=== PATIENT | male | born 1940 | race Caucasian/White ===

== ENCOUNTER → 2017-03-20 | Day surgery (SDC) | payer MEDICARE, BC ==
[~2017-03-20] MED LIST: ASPI81 PO; HYDR12.56 PO; LACTATED RINGER'S 1000 ML INJ 1,000 ML ONE; PROPOFOL 200 MG/20 ML AMP IV ONE; ROSU10 PO
--- NOTE | 2017-03-20 07:57 | GIPROC ---
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 TOPICAL ANESTHETIC: none CONSENT: The patient understands the risks and benefits of the procedure and understands that these risks include, but are not limited to: sedation, allergic reaction, infection, perforation and/or bleeding. Alternative means of evaluation and treatment include, among others: physical exam, x-rays, and/or surgical intervention. The patient elects to proceed with this endoscopic procedure. medical equipment was checked for proper function. Hand hygiene and appropriate measures for infection prevention was taken. After the risks, benefits and alternatives of the procedure were thoroughly explained, Informed consent was verified, confirmed and timeout was successfully executed by the treatment team. The patient was anesthetized with anesthesia and the EC-[id number] ([id number]) endoscope was introduced through the mouth and advanced to the anastomosis. Healing GJ ulcer, much improved. Retroflexion was not performed The gastroscope was then slowly withdrawn and removed. Gastrojejunostomy ulcer healing, much improved. ADVERSE EVENTS: There were no complications. IMPRESSIONS: 1. Gastrojejunostomy ulcer healing, much improved 2. Retroflexion was not performed RECOMMENDATIONS: Continue PPI PATIENT CONDITION: fair DISPOSITION: Home REPEAT EXAM: NONE Dragan Mejias MD eSigned: Dragan Mejias MD 03/20/2017 7:56 AM cc: Dragan Mejias MD
== END | disposition home or self-care (01) ==
LOC: ESDC 06:38
PROVIDERS: ATTEND Surgery
DX: K27.9 Peptic ulcer, site unspecified, unspecified as acute or chronic, without hemorrhage or perforation (principal)
CPT/HCPCS: 00731; 43235; J3010; J7120